=== PATIENT | male | born 1970 | race American Indian/Alaskan Native ===

== ENCOUNTER 2020-05-18 14:23 | Emergency (ER) | payer SELFPAY ==
[2020-05-18 14:36] VITALS: BP 171/85
--- NOTE | 2020-05-18 14:36 | Event Note ---
ED Screening Note Date of service: 05/18/20 Time: 14:35 ED Screening Note: Patient complains of right hand pain after a crush injury 2 days ago This initial assessment/diagnostic orders/clinical plan/treatment(s) is/are subject to change based on patients health status, clinical progression and re- assessment by fellow clinical providers in the ED. Further treatment and workup at subsequent clinical providers discretion. Patient/guardian urged not to elope from the ED as their condition may be serious if not clinically assessed and managed. Initial orders include: X-ray
--- NOTE | 2020-05-18 15:08 | XRay Report ---
RIGHT HAND 3 VIEWS INDICATION / CLINICAL INFORMATION: 2nd/3rd MC pain after crush injury. COMPARISON: None available. FINDINGS: Comminuted but only mildly displaced fracture is demonstrated in the distal end of the second metacar pal. Signer Name: Keenan Hunt MD Signed: 05/18/2020 3:04 PM Workstation Name: [id number]
--- NOTE | 2020-05-18 17:19 | Emergency Department Report ---
ED General Adult HPI - General Chief complaint: Extremity Injury, Upper Stated complaint: RT HAND SWELLING Time Seen by Provider: 05/18/20 14:35 Source: patient Mode of arrival: Ambulatory Limitations: No Limitations - History of Present Illness Initial comments: 49-year-old -[place] male patient complains of right hand pain after a crush injury occurring at work 2 days ago. Patient states the hand was smashed in a forklift. He rates his pain as a 7/10 in severity and denies any numbness/tingling/decreased range of motion of the hand. - Related Data Previous Rx's Medication Instructions Recorded Last Taken Type Acetaminophen/Codeine [Tylenol 1 tab PO Q8H PRN #12 tab 05/18/20 Unknown Rx /Codeine # 3 tab] Naproxen [Naprosyn] 500 mg PO BID PRN #14 tablet 05/18/20 Unknown Rx Allergies Allergy/AdvReac Type Severity Reaction Status Date / Time No Known Allergies Allergy Unverified 05/18/20 14:35 ED Review of Systems ROS: Stated complaint: RT HAND SWELLING Other details as noted in HPI Constitutional: denies: malaise Musculoskeletal: joint swelling, arthralgia Skin: denies: rash Neurological: denies: numbness, paresthesias ED Past Medical Hx - Past Medical History Previous Medical History?: No - Surgical History Past Surgical History?: No - Medications Home Medications: Home Medications Medication Instructions Recorded Confirmed Last Taken Type Acetaminophen/Codeine [Tylenol 1 tab PO Q8H PRN #12 tab 05/18/20 Unknown Rx /Codeine # 3 tab] Naproxen [Naprosyn] 500 mg PO BID PRN #14 tablet 05/18/20 Unknown Rx ED Physical Exam - General Limitations: No Limitations General appearance: alert, in no apparent distress - Head Head exam: Present: atraumatic, normocephalic - Eye Eye exam: Present: normal appearance - Respiratory Respiratory exam: Absent: respiratory distress - Cardiovascular Cardiovascular Exam: Present: regular rate - Extremities Exam Extremities exam: Present: full ROM, other (Tenderness to palpation noted to the distal second and third metacarpals with moderate swelling and bruising noted; normal range of motion of the right hand and fingers noted along with normal perfusion) ED Course Vital Signs 05/18/20 14:35 Temperature 98.7 F Pulse Rate 89 Respiratory 18 Rate Blood Pressure 171/85 [Right] O2 Sat by Pulse 99 Oximetry ED Medical Decision Making - Radiology Data Radiology results: report reviewed RIGHT HAND 3 VIEWS INDICATION / CLINICAL INFORMATION: 2nd/3rd pain after crush injury. COMPARISON: None available. FINDINGS: Comminuted but only mildly displaced fracture is demonstrated in the distal end of the second metacarpal. - Medical Decision Making Comminuted fracture of the distal second metacarpal noted on x-ray. Patient pl aced in an radial gutter splint. Patient to follow-up with Ortho within 2 days. Discussed signs and symptoms that should prompt immediate return to the emergency department in detail with patient who verbalizes understanding Critical care attestation.: If time is entered above; I have spent that time in minutes in the direct care of this critically ill patient, excluding procedure time. ED Disposition Clinical Impression: Other fracture of second metacarpal bone, right hand, initial encounter for closed fracture Disposition: TO HOME OR SELFCARE Is pt being admited?: No Condition: Stable Instructions: Cast or Splint Care, Adult, [id number], Metacarpal Fracture Prescriptions: Naproxen [Naprosyn] 500 mg PO BID PRN #14 tablet PRN Reason: Pain, Moderate (4-6) Acetaminophen/Codeine [Tylenol /Codeine # 3 tab] 1 tab PO Q8H PRN #12 tab PRN Reason: Pain , Severe (7-10) Referrals: [facility] [Provider Group] - 2-3 Days Forms: Work/School Release Form(ED)
== END 2020-05-18 18:55 | disposition home or self-care (01) ==
LOC: ED 14:23
DX: S62.390A Other fracture of second metacarpal bone, right hand, initial encounter for closed fracture (principal); Z79.899 Other long term (current) drug therapy; X58.XXXA Exposure to other specified factors, initial encounter; Y93.89 Activity, other specified; Y92.89 Other specified places as the place of occurrence of the external cause; Y99.0 Civilian activity done for income or pay